=== PATIENT | female | born 1985 | race Caucasian/White ===

== ENCOUNTER → 2016-12-12 | Outpatient (CLI) | payer OTHER ==
[~2016-12-12] MED LIST: PANT40TA PO; PRENTAB26 PO
[2016-12-12 11:47] LABS: BASO % 0.4 %; BASO ABS # 0.02 K/uL (0-0.2); COMPLETE YES; EOS % 1.8 %; HEMATOCRIT 38.8 % (37-47); IG% 0.2 %; LYMPH % 45.5 %; LYMPH ABS # 2.55 K/uL (1.2-3.4); MEAN CORPUSCULAR HEMOGLOBIN 28.8 pg (25-34); MEAN CORPUSCULAR HGB CONC 33.5 g/dl (32-36); MEAN PLATELET VOLUME 9.2 fL (7.4-10.4); NEUT % 47.1 %; PLATELET COUNT 216 K/uL (130-400); RED BLOOD COUNT 4.51 M/uL (4.2-5.4); WHITE BLOOD COUNT 5.61 K/uL (4.8-10.8)
[2016-12-12 12:16] LABS: ALT/SGPT 24 U/L (12-78); AST/SGOT 13 U/L (15-37); BLOOD UREA NITROGEN 17 mg/dl (7-18); BUN/CREATININE RATIO 21.9 (10-20); CALCIUM 8.7 mg/dl (8.5-10.1); CARBON DIOXIDE 30 mmol/L (21-32); CHLORIDE 108 mmol/L (98-107); CREATININE 0.79 mg/dl (0.60-1.20); GLUCOSE 95 mg/dl (70-99); POTASSIUM 4.2 mmol/L (3.5-5.1); SODIUM 142 mmol/L (136-145)
[2016-12-12 12:19] LABS: ALKALINE PHOSPHATASE 99 U/L (45-117); C-REACTIVE PROTEIN 0.64 mg/dl (0-0.29)
== END | disposition home or self-care (01) ==
LOC: C.LAB 11:05
PROVIDERS: ATTEND Physician Assistant
DX: M05.89 Other rheumatoid arthritis with rheumatoid factor of multiple sites (principal); Z51.81 Encounter for therapeutic drug level monitoring

== ENCOUNTER → 2017-05-15 | Outpatient (CLI) | payer OTHER ==
--- NOTE | 2017-05-15 11:25 | DIAGNOSTIC IMAGING REPORT ---
C-SPINE ROUTINE W/FLEX EXT CLINICAL HISTORY: 32 years-old Female presenting with NECK PAIN. TECHNIQUE: Lateral view of the cervical spine in neutral, flexion, and extension positioning was obtained. In addition bilateral oblique, frontal, and open-mouth odontoid views were also obtained. COMPARISON: None. FINDINGS: Flexion and extension do not result in subluxation. Straightening of normal cervical lordosis likely positional. No radiographic evidence of fracture. Vertebral bodies maintain normal height and alignment. Intervertebral disc spaces preserved. Normal predental interval. No prevertebral soft tissue swelling. Bifid C5 spinous process noted. No neural foraminal narrowing. Lateral masses of C1 articulate normally with C2, although the open-mouth odontoid view is suboptimal. IMPRESSION: No acute osseous injury of the cervical spine. No subluxation on flexion and extension. Electronically signed by: Isiah Boogie M.D. 05/15/2017 11:24 AM Dictated Date/Time: 05/15/2017 11:21 AM
== END | disposition home or self-care (01) ==
LOC: C.RAD 10:31
PROVIDERS: ATTEND Internal Medicine Rheumatology
DX: Z51.81 Encounter for therapeutic drug level monitoring (principal); M06.9 Rheumatoid arthritis, unspecified; M54.2 Cervicalgia; Z79.899 Other long term (current) drug therapy

== ENCOUNTER → 2017-05-28 | Outpatient (CLI) | payer OTHER ==
[2017-05-28 14:39] LABS: BASO % 0.4 %; BASO ABS # 0.03 K/uL (0-0.2); COMPLETE YES; EOS % 1.5 %; HEMATOCRIT 36.7 % (37-47); IG% 0.1 %; LYMPH % 32.6 %; LYMPH ABS # 2.77 K/uL (1.2-3.4); MEAN CELL VOLUME 85.3 fL (80-100); MEAN CORPUSCULAR HEMOGLOBIN 28.1 pg (25-34); MEAN PLATELET VOLUME 9.2 fL (7.4-10.4); MONO % 5.5 %; NEUT % 59.9 %; PLATELET COUNT 275 K/uL (130-400)
[2017-05-28 15:10] LABS: ALT/SGPT 20 U/L (12-78); AST/SGOT 13 U/L (15-37); BLOOD UREA NITROGEN 14 mg/dl (7-18); BUN/CREATININE RATIO 18.3 (10-20); CALCIUM 8.6 mg/dl (8.5-10.1); CARBON DIOXIDE 27 mmol/L (21-32); CHLORIDE 107 mmol/L (98-107); CREATININE 0.78 mg/dl (0.60-1.20); GLUCOSE 87 mg/dl (70-99); POTASSIUM 4.1 mmol/L (3.5-5.1); SODIUM 140 mmol/L (136-145)
[2017-05-28 15:11] LABS: ALB/GLOB RATIO 0.9 (0.9-2); ALKALINE PHOSPHATASE 96 U/L (45-117); C-REACTIVE PROTEIN 1.14 mg/dl (0-0.29)
== END | disposition home or self-care (01) ==
LOC: C.LAB 13:52
PROVIDERS: ATTEND Physician Assistant
DX: M05.79 Rheumatoid arthritis with rheumatoid factor of multiple sites without organ or systems involvement (principal)

== ENCOUNTER → 2018-03-25 | Outpatient (CLI) | payer OTHER ==
[~2018-03-25] MED LIST changes: +AZIT500T26 PO; +BENZ100C84 PO; +CERT200K INJ; +MELO-83 PO; +MULT-506 PO; +PRED20TA2 PO; -PRENTAB26 PO; +SULF500T36 PO; +VNTHFA/IN INH
[2018-03-25 13:14] LABS: HEMOGLOBIN 11.9 g/dL (12.0-16.0); MEAN CELL VOLUME 84.1 fL (80-100); MEAN CORPUSCULAR HGB CONC 32.2 g/dl (32-36); MEAN PLATELET VOLUME 9.7 fL (7.4-10.4); PLATELET COUNT 190 K/uL (130-400); RED CELL DISTRIBUTION WIDTH CV 16.2 % (11.5-14.5); RED CELL DISTRIBUTION WIDTH SD 49.8 fL (36.4-46.3); WHITE BLOOD COUNT 4.99 K/uL (4.8-10.8)
[2018-03-25 13:49] LABS: BASO % 0.6 %; BASO ABS # 0.03 K/uL (0-0.2); EOS % 0.6 %; EOS ABS # 0.03 K/uL (0-0.5); IG# 0.01 K/uL (0.00-0.02); LYMPH % 54.3 %; LYMPH ABS # 2.71 K/uL (1.2-3.4); MONO ABS # 0.35 K/uL (0.11-0.59); NEUT % 37.3 %; NEUT ABS # 1.86 K/uL (1.4-6.5)
[2018-03-25 14:53] LABS: ALBUMIN 3.6 gm/dl (3.4-5.0); ALKALINE PHOSPHATASE 60 U/L (45-117); ALT/SGPT 25 U/L (12-78); AST/SGOT 21 U/L (15-37); CHOLESTEROL 118 mg/dl (0-200); CREATININE 0.88 mg/dl (0.60-1.20); GLUCOSE,FASTING 91 mg/dl (70-99); LDL CHOLESTEROL CALCULATED 63 mg/dl; TOTAL PROTEIN 7.2 gm/dl (6.4-8.2)
== END | disposition home or self-care (01) ==
LOC: C.LAB 12:12
PROVIDERS: ATTEND Family Medicine
DX: Z00.00 Encounter for general adult medical examination without abnormal findings (principal); M06.871 Other specified rheumatoid arthritis, right ankle and foot; Z79.899 Other long term (current) drug therapy

== ENCOUNTER 2019-07-15 04:31 | Inpatient (IN) ==
[2019-07-15] MEDS ORDERED: LACTATED RINGER'S 1,000 ML IV PRN (05:01)
[2019-07-15] MEDS ORDERED: OXYTOCIN 30 UNITS/500 ML BAG IV PRN ×2 (05:01→06:03)
[2019-07-15 05:57] LABS: Hematocrit (blood only) 33.7 % (37-47); Hemoglobin 10.4 g/dL (12.0-16.0); Mean Corpuscular Hemoglobin 27.8 pg (25-34); Mean Corpuscular Hgb Conc 30.9 g/dL (32-36); Mean Corpuscular Volume 90.1 fL (80-100); Mean Platelet Volume 9.8 fL (7.4-10.4); Nucleated RBC # (auto) 0.07 K/uL (0-0); Nucleated RBC % (auto) 0.5 %; Platelet Count 269 K/uL (130-400); RDW Coefficient of Variation 16.6 % (11.5-14.5); RDW Standard Deviation 54.1 fL (36.4-46.3); Red Blood Count 3.74 M/uL (4.2-5.4); White Blood Count 13.29 K/uL (4.8-10.8)
[2019-07-15] MEDS ORDERED: BISACODYL 10 MG SUPP PR PRN (06:03)
[2019-07-15] MEDS ORDERED: BENZOCAINE 20% AER SPR 82.5 GM CAN EXT PRN (06:03)
[2019-07-15] MEDS ORDERED: DIPHTHERIA/TETANUS/PERTUSSIS 0.5 ML SYR/VIAL IM ONE (06:03)
[2019-07-15] MEDS ORDERED: HYDROCORTISONE ACETATE 25 MG SUPP PR PRN (06:03)
[2019-07-15] MEDS ORDERED: SUPERCREAM 0.870% 15 GM JAR EXT PRN (06:03)
[2019-07-15] MEDS ORDERED: ACETAMINOPHEN 325 MG TAB PO PRN (06:03)
--- NOTE | 2019-07-15 06:13 | History & Physical Report ---
Date of Service July 15, 2019 Assessment & Plan (1) Supervision of normal intrauterine in multigravida: 34yo G [id number] at 40.1 weeks GA. SROM/ Labor 1. Fetus: Cat 1 2. Labor: SROM, q6min CTX 3. Vitals WNL 4. A1gDM: POC BG 5. GBS neg 6. RA - Home meds (2) Diet controlled gestational diabetes mellitus (GDM): (3) Obesity complicating peripregnancy, antepartum: History of Present Illness Primary Care Provider: NO PCP 34yo at 40.1 weeks GA. Present for LOF and contractions q6min. complicated by A1gDM, BMI>50, and rheumatoid arthritis. Allergies Allergy/AdvReac Type Severity Reaction Status Date / Time No Known Allergies Allergy Verified 07/12/19 13:41 Home Medications Home Medications Medication Instructions Recorded Confirmed Type prenat.vits,carlton,wol-sxry-cbhhy 1 tab PO DAILY 03/14/19 07/15/19 History pantoprazole 40 mg tablet,delayed 40 mg PO DAILY #30 tab 03/21/19 07/15/19 History release ondansetron HCl 4 mg tablet 8 mg PO BID PRN #30 tab 06/27/19 07/15/19 Rx certolizumab pegol [Cimzia] mg SUBCUT 2XWK 07/15/19 History Patient History Social History (Updated 03/21/19 @ 13:19 by Meri Soto) Preferred Language: Cook Islander Communication Ability: Effective Rn Burn Required: No Beliefs That Will Affect Care: None marital status: Current Living Situation: Spouse and Family Current Living Situation Comment: spouse and children current occupation: homemaker Feels Safe at Home: Yes Safety Concerns: Feels Safe At This Time Smoking Status: Never smoker Hx Alcohol Use: No Hx Substance Use: No Physical Exam Constitutional: WD/WN, vitals as above Psychiatric: A+Ox3, euthymic affect Genitourinary: no vaginal lesions, no adnexal mass OB Exam Abdomen: + vertex Manual OB Exam: + cervical dilation 2 cm, + cervical effacement 50%, + station -2 and + amniotic fluid meconium OB Exam Monitor Tracing: + external FHT monitor used, + external uterine monitor used, + category I and + normal FHT variability; no category III, no early decelerations present, no late decelerations present and no variable decelerations
[2019-07-15] MEDS: IBUPROFEN 600 MG TAB PO PRN ×4 (06:32→22:02)
--- NOTE | 2019-07-15 06:35 | Delivery Summary ---
DATE OF OPERATION: 07/15/2019 PROCEDURE: Normal spontaneous vaginal delivery with second-degree perineal laceration repair. SURGEON: Kamaljit Palomo MD PREOPERATIVE DIAGNOSES: 1. Single intrauterine at 40+ weeks' gestational age. 2. Diet-controlled gestational diabetes. 3. BMI greater than 54. 4. History of rheumatoid arthritis. POSTOPERATIVE DIAGNOSES: 1. Single intrauterine at 40+ weeks' gestational age. 2. Diet-controlled gestational diabetes. 3. BMI greater than 54. 4. History of rheumatoid arthritis. 5. Status post delivery. ESTIMATED BLOOD LOSS: 300 mL. DRAINS: None. FLUIDS: Continuous lactated ringer. URINE OUTPUT: Not measured. COMPLICATIONS: None. FINDINGS: Viable female infant with weight pending, Apgars of 7 and 9 at 1 and 5 minutes respectively. INDICATIONS: Ms. Leonard a 34-year-old G3, P2-0-0-2, admitted at 40 weeks 1 day gestational age with spontaneous rupture of membranes and regular painful contractions. At first evaluation, the patient was found to be 2 cm dilated, 50% effaced, -2 station. The patient progressed in labor over approximately 30-minute period to complete-complete +2 station, felt a strong urge to push and pushed for less than 1 contraction to achieve delivery. DESCRIPTION OF PROCEDURE: The patient progressed in labor to complete-complete +2. The patient delivered and transferred from recovery room to delivery room. Upon entering delivery room, the was then fully delivered and the cord was still attached to the umbilical cord. The cord was double clamped and cut and remained on maternal abdomen. Cord blood was then obtained. Attention was then turned to deliver the placenta. The cord was noted to be macerated and detached with minimal traction. Approximately 5-minute period was allowed for spontaneous delivery of placenta. The placenta was then able to be followed in the vagina and was grasped with a ring forceps and was able to be delivered. On inspection of the perineum, vagina, and cervix, there was noted to be a second degree perineal laceration which was repaired with 3-0 Vicryl and continuous running crown stitch. Needle, sponge and instrument counts were correct at the completion of the case entire and a total of 15 mL of 1% plain lidocaine was injected into the laceration. I attest to the content of the Intraoperative Record and any orders documented therein. Any exceptions are noted below. MTDD
[2019-07-15] MEDS: PRENATAL VITAMIN 1 TAB PO SCH (08:10)
[2019-07-15] MEDS: DOCUSATE SODIUM 100 MG CAP PO SCH ×2 (08:10→20:31)
[2019-07-15] MEDS: PANTOprazole 40 MG TAB PO SCH (08:11)
[2019-07-16 06:09] LABS: Hematocrit (blood only) 29.1 % (37-47)
[2019-07-16] MEDS: DOCUSATE SODIUM 100 MG CAP PO SCH (08:00)
[2019-07-16] MEDS: PRENATAL VITAMIN 1 TAB PO SCH (08:00)
[2019-07-16] MEDS: PANTOprazole 40 MG TAB PO SCH (08:00)
[2019-07-16] MEDS: IBUPROFEN 600 MG TAB PO PRN (08:00)
--- NOTE | 2019-07-16 09:58 | Obstetrical Progress Note ---
Date of Service July 16, 2019 Assessment & Plan (1) Normal delivery at term: plan d/c home, stable, routine pp care reviewed and instructions, plan 6wk pp check Day #:: 1 Subjective Ambulation: ambulating normally Voiding: no voiding problems Diet Tolerance:: regular diet Lochia:: Small Feeding Type:: breast feeding denies pain issues, desires d/c home Physical Exam Constitutional WD/WN, vitals as above Respiratory normal respiratory effort, lungs clear to auscultation Cardiovascular Rate/Rhythm: regular rate and regular rhythm Gastrointestinal (Abdomen) Percussion/Palpation: abdomen soft; abdomen nontender Musculoskeletal nt calves Neurologic grossly normal Psychiatric A+Ox3, euthymic affect Genitourinary FF at u, nt Results & Data Vital Signs (Past 12 Hours) Vital Signs Temp Pulse Resp BP Pulse Ox 07/16/19 07:52 97.7 F 86 16 113/76 94 07/16/19 03:19 98.1 F 78 20 121/80 07/16/19 00:00 97.9 F 96 H 20 121/78 96
[2019-07-16] MEDS ORDERED: BISACODYL 5 MG TABEC PO SCH (20:00)
== END 2019-07-16 12:06 | disposition home or self-care (01) | DRG 806 ==
LOC: OPB 04:31 → 4S1 04:33 → 4S2 09:01
DX: Z68.43 Body mass index [BMI] 50.0-59.9, adult; Z37.0 Single live birth; O24.420 Gestational diabetes mellitus in childbirth, diet controlled; Z3A.40 40 weeks gestation of pregnancy; O70.1 Second degree perineal laceration during delivery

== ENCOUNTER 2023-08-13 10:15 | Inpatient (IN) ==
[2023-08-13] MEDS ORDERED: LACTATED RINGER'S 1,000 ML IV PRN (11:20)
[2023-08-13 12:03] LABS: Hematocrit (blood only) 31.2 % (37.0-47.0); Hemoglobin 10.3 g/dl (12.0-16.0); Mean Corpuscular Hemoglobin 29.3 pg (25.0-34.0); Mean Corpuscular Volume 88.6 fL (80.0-100.0); Mean Platelet Volume 9.8 fL (9.4-12.4); Nucleated RBC # (auto) 0.02 K/uL (0.00-0.12); Nucleated RBC % (auto) 0.2 %; Platelet Count 279 K/uL (130-400); RDW Coefficient of Variation 14.6 % (11.5-14.5); RDW Standard Deviation 46.9 fL (36.4-46.3); Red Blood Count 3.52 M/uL (4.20-5.40)
--- NOTE | 2023-08-13 12:59 | History & Physical Report ---
Date of Service August 13, 2023 Assessment & Plan (1) Elderly multigravida, currently : (2) Diet controlled gestational diabetes mellitus (GDM): (3) Obesity complicating peripregnancy, antepartum: Plan 38 yo at 39 5/7 wga presents for IOL VSS Fetus cat 1 Labor - pt has hx rapid labors after srom/arom, would prefer to try this first before starting pit. Declines epidural at this point. AROM performed, pt tolerated well. Pit PRN GBS neg A1GDM - BG good on admit declines epidural Admission and Anticipated Discharge Date Admission Date: August 13, 2023 History of Present Illness Chief Complaint: IOL Primary Care Provider: Mireya Mann MD 38 yo at 39 5/7 wga presents for IOL per BMI protocol. +FM; denies ctx, LOF, VB PNI: A1GDM AMA BMI > 40 RA Past [employer] Hx: G1 2014 G2 2016 G3 2019SVD G4 2021 SAB G5 current Denies hx STIs Allergies Allergy/AdvReac Type Severity Reaction Status Date / Time adhesive Allergy Redness of Verified 08/13/23 11:35 Skin Home Medications Medication Instructions Recorded Confirmed Type pantoprazole 40 mg tablet,delayed 40 mg PO DAILY #30 tabs 03/21/19 08/13/23 History release prenat.vits,carlton,off-ihbp-hdqbu 1 tab PO DAILY 12/31/22 08/13/23 History acetone (urine) test (Ketone Urine #50 ea 04/06/23 08/12/23 Rx Test strips) blood sugar diagnostic (OneTouch #150 ea 04/06/23 08/12/23 Rx Verio test strips) blood-glucose meter (OneTouch #1 ea 04/06/23 08/12/23 Rx Verio Flex Meter) lancets 33 gauge #150 ea 04/06/23 08/12/23 Rx sertraline 50 mg tablet (Zoloft) 50 mg PO .COMPLEX #90 tabs 04/29/23 08/13/23 Rx promethazine 12.5 mg tablet 12.5 mg PO Q6H PRN nausea and 05/27/23 08/13/23 Rx vomiting #10 tabs pyridoxine (vitamin B6) 25 mg 25 mg PO TID PRN nausea and 06/11/23 08/13/23 Rx tablet vomiting #90 tabs ondansetron HCl 4 mg tablet 4 mg PO Q6H PRN nausea and 07/06/23 08/13/23 Rx vomiting #20 tabs Patient History Medical History Post depression History of rheumatoid arthritis Enlarged thyroid Depression Anxiety History of anemia Procreative management counseling History of urinary tract infection History of acute bronchitis Supervision of normal intrauterine in multigravida Screening, , for anatomic survey Surgical History S/P wisdom tooth extraction Family History Mother Otoniel's thyroiditis Breast cancer, Onset Age: 35 Father Depression Anxiety Uncle Alcohol abuse Denies family history of Ovarian cancer Colorectal cancer Social History Smoking Status: Never smoker Do You Dip or Chew Tobacco: No; Hx Alcohol Use: No Hx Substance Use: No Preferred Language: [place] African Communication Ability: Effective Car Dispatcher Required: No Beliefs That Will Affect Care: None marital status: marital status details: maureen almeida (38) [phone] Current Living Situation: Spouse Current Living Situation Comment: spouse and children, 2 dogs current occupational status: employed current occupation: [employer] artist, at home Other Information That Helps Us Care for You: No Feels Safe at Home: Yes Safety Concerns: Feels Safe At This Time Assistive Devices: None Physical Exam Genitourinary: Manual OB Exam: + cervical dilation (3.5), + cervical effacement 50%, + station -2 and + amniotic fluid (arom light mec) OB Exam Monitor Tracing: + external FHT monitor used, + external uterine monitor used (irritability) and + category I (140/mod/+accel/-decel) Results & Data Vital Signs (Past 12 Hours) Vital Signs Temp Pulse Resp BP 08/13/23 11:04 98.1 F 20 08/13/23 11:03 111 H 129/68 Laboratory Results OB Labs: Blood Type AB Positive 03/13/23 Antibody Screen NEGATIVE 03/13/23 Hemoglobin 12.5 g/dl (12.0-16.0) 01/16/23 Hematocrit 36.8 % (37.0-47.0) L 01/16/23 Mean Corpuscular Volume 89.5 fL (80.0-100.0) 01/16/23 Platelet Count 205 K/uL (130-400) 01/16/23 Rubella IgG Antibody Immune (Immune) 03/13/23 Rapid Plasma Reagin Nonreactive (Nonreactive) 03/13/23 Hepatitis B Surface Antigen Neg (Neg) 12/02/18 Hepatitis B Surface Antigen. NON-REACTIVE (NON-REACTIVE) 01/16/23 Hepatitis C Antibody (EIA) NON-REACTIVE (NON-REACTIVE) 01/16/23 HIV (1&2) Ab and P24 Ag, 4th Gener Neg (Neg) 12/02/18 HIV (1&2) Ag and Ab Confirmation NON-REACTIVE (NON-REACTIVE) 03/13/23 Maternal Serum Alpha Fetoprotein 25.3 ng/mL 03/13/23 OB Optional Labs: Chlamydia trachomatis RNA Not Detected (NotDetected) 01/08/23 Neisseria gonorrhoeae RNA Not Detected (NotDetected) 01/08/23 Thyroid Stimulating Hormone (TSH) 2.380 uIu/ml (0.300-4.500) 04/11/21 Alpha Fetoprotein Triple Screen SEE NOTE 03/13/23 Labs Reviewed: low risk panorama--[facility] afp neg--[facility] GBS neg Diagnostic Findings 07/19 EFW 60% Coding Level of Care Code None Diagnoses Elderly multigravida, currently O09.529 Diet controlled gestational diabetes mellitus (GDM) O24.410 Obesity complicating peripregnancy, antepartum O99.210
[2023-08-13] MEDS ORDERED: LIDOCAINE 2%/EPINEPHRINE 1:200,000 20 ML PF ONE (15:34)
[2023-08-13] MEDS ORDERED: fentANYL 2 MCG/ML BUPIVacaine 0.125%-NSS 100ML BAG ONE (15:34)
[2023-08-13] MEDS ORDERED: ePHEDrine sulfate 50 MG/ML AMP ONE (15:34)
[2023-08-13] MEDS ORDERED: fentaNYL citrate PF 100 MCG/2 ML VIAL ONE (15:34)
[2023-08-13] MEDS ORDERED: SODIUM CHLORIDE 0.9% PF INJ 10 ML VIAL ONE (15:34)
[2023-08-13] MEDS ORDERED: BUPIVACAINE 0.25% PF 30 ML VIAL ONE (15:34)
[2023-08-13] MEDS ORDERED: BUPIVACAINE 0.25% PF 30 ML VIAL EPI PRN (15:40)
[2023-08-13] MEDS ORDERED: ONDANSETRON INJ 2 MG/ML 2 ML VIAL IV PRN (15:40)
[2023-08-13] MEDS ORDERED: fentaNYL citrate PF 100 MCG/2 ML VIAL EPI STA (15:40)
[2023-08-13] MEDS ORDERED: SODIUM CHLORIDE 0.9% PF INJ 10 ML VIAL EPI PRN (15:40)
[2023-08-13] MEDS ORDERED: LIDOCAINE 2% MPF LOCAL 5 ML VIAL EPI PRN (15:40)
[2023-08-13] MEDS ORDERED: NALBUPHINE HCL 5 MG in SYRINGE 0 ML IV PRN (15:40)
[2023-08-13] MEDS ORDERED: SODIUM CHLORIDE 0.9% PF INJ 10 ML VIAL EPI STA (15:40)
[2023-08-13] MEDS ORDERED: diphenhydrAMINE 50 MG/ML VIAL IV PRN (15:40)
[2023-08-13] MEDS ORDERED: ePHEDrine sulfate 50 MG/ML AMP IV PRN (15:40)
[2023-08-13] MEDS ORDERED: NALOXONE HCL 0.4 MG/1 ML VIAL/CARP IV PRN (15:40)
[2023-08-13] MEDS ORDERED: BUPIVACAINE 0.25% PF 30 ML VIAL EPI STA (15:40)
[2023-08-13] MEDS ORDERED: ROPIVACAINE 0.5% PF 5 MG/ML 20 ML VIAL EPI PRN (15:40)
[2023-08-13] MEDS ORDERED: LIDOCAINE 2%/EPINEPHRINE 1:200,000 20 ML PF EPI STA (15:40)
[2023-08-13] MEDS ORDERED: fentaNYL citrate PF 100 MCG/2 ML VIAL EPI PRN (15:40)
[2023-08-13] MEDS ORDERED: NALOXONE HCL 1 MG in SODIUM CHLORIDE 0.9% 1,000 ML IV PRN (15:40)
[2023-08-13] MEDS ORDERED: fentANYL 2 MCG/ML BUPIVacaine 0.125%-NSS 100ML BAG EPI PRN (15:40)
--- NOTE | 2023-08-13 15:40 | Anesthesiology Consultation ---
Date of Service August 13, 2023 Assessment & Plan ASA ASA3 Proposed Anesthesia Anesthesia Type: Labor Epidural Risk / Benefits Reviewed With: PT / POA / Parent / Guardian, Accepts Plan and Informed Consent Obtained History Height/Weight Height: 5 ft 6 in Weight: 121.109 kg Allergies Allergy/AdvReac Type Severity Reaction Status Date / Time adhesive Allergy Redness of Verified 08/13/23 11:35 Skin Medications Home Medications Medication Instructions Recorded Confirmed Last Taken pantoprazole 40 mg tablet,delayed 40 mg PO DAILY #30 tabs 03/21/19 08/13/23 07/14/19 08:00 release prenat.vits,carlton,nnp-rako-msbbu 1 tab PO DAILY 12/31/22 08/13/23 Unknown acetone (urine) test (Ketone Urine #50 ea 04/06/23 08/12/23 Unknown Test strips) blood sugar diagnostic (OneTouch #150 ea 04/06/23 08/12/23 Unknown Verio test strips) blood-glucose meter (OneTouch #1 ea 04/06/23 08/12/23 Unknown Verio Flex Meter) lancets 33 gauge #150 ea 04/06/23 08/12/23 Unknown sertraline 50 mg tablet (Zoloft) 50 mg PO .COMPLEX #90 tabs 04/29/23 08/13/23 Unknown promethazine 12.5 mg tablet 12.5 mg PO Q6H PRN nausea and 05/27/23 08/13/23 Unknown vomiting #10 tabs pyridoxine (vitamin B6) 25 mg 25 mg PO TID PRN nausea and 06/11/23 08/13/23 Unknown tablet vomiting #90 tabs ondansetron HCl 4 mg tablet 4 mg PO Q6H PRN nausea and 07/06/23 08/13/23 Unknown vomiting #20 tabs Active Medications Generic Name Dose Route Start Last Admin Trade Name Freq PRN Reason Stop Dose Admin Lactated Ringer's 1,000 mls @ 125 mls/hr 08/13/23 11:20 08/13/23 15:27 Lr IV 08/15/23 11:19 999 mls/hr .Q8H PRN Administration L&D Protocol Protocol Past Medical History Medical History Post depression History of rheumatoid arthritis Enlarged thyroid Depression Anxiety History of anemia Procreative management counseling History of urinary tract infection History of acute bronchitis Supervision of normal intrauterine in multigravida Screening, , for anatomic survey Exercise / Class Metabolic Activity II 4-5 Yardwork/Stairs/Walk up hill Past Family History Family History Mother Otoniel's thyroiditis Breast cancer, Onset Age: 35 x2, +BRCA gene. had chemo,radiation,lumpectomy- surviving today Father Depression Anxiety Uncle Alcohol abuse paternal Denies family history of Ovarian cancer Colorectal cancer Past Surgical History Surgical History S/P wisdom tooth extraction Past Anesthesia History No Hx of Anesthesia Complications and No Family Hx of Anesthesia Complications History of PONV No Hx of PONV and No Hx of Motion Sickness Social History Smoking Status: Never smoker Do You Dip or Chew Tobacco: No Hx Alcohol Use: No Hx Substance Use: No substance use type: does not use Review of Systems denies fever/cough/ colds/ chest pain/ SOB/ ERICK denies ERICK Physical Exam Vital Signs Last Vital Signs Temp 36.4 C L 08/13/23 13:57 Pulse 82 08/13/23 15:35 Resp 20 08/13/23 13:57 BP 121/70 08/13/23 13:57 Pulse Ox 94 08/13/23 15:35 ENMT Mouth: no TMJ abnormality and no dentition abnormality Thyromental Distance: > or= 3.5 Finger Breadths Mallampati Class: II Neck neck extension not limited Respiratory normal respiratory effort; no respiratory distress Auscultation: lungs clear to auscultation bilaterally Cardiovascular Rate/Rhythm: regular rate and regular rhythm Neurologic moves all extremities Psychiatric Orientation: alert and oriented x 3 Testing Laboratory Results 08/13/23 11:32 Blood Type AB Positive 08/13/23 11:32 Antibody Screen NEGATIVE 08/13/23 11:32 08/13/23 11:57 POC Glucose 96
[2023-08-13] MEDS: OXYTOCIN 30 UNITS/NSS 30 UNITS/500 ML BAG IV PRN ×2 (16:27→17:25)
[2023-08-13] MEDS: LIDOCAINE 1% LOCAL 20 ML VIAL INFIL PRN ×2 (16:33→16:34)
[2023-08-13] MEDS ORDERED: BENZOCAINE 20% SPRY 85 APPLN/85 GM CAN EXT PRN (16:50)
[2023-08-13] MEDS ORDERED: HYDROCORTISONE ACETATE 25 MG SUPP PR PRN (16:50)
[2023-08-13] MEDS ORDERED: OXYTOCIN 30 UNITS/NSS 30 UNITS/500 ML BAG IV PRN (16:50)
[2023-08-13] MEDS ORDERED: ACETAMINOPHEN 325 MG TAB PO PRN (16:50)
[2023-08-13] MEDS ORDERED: bisacodyL 10 MG SUPP PR PRN (16:50)
[2023-08-13] MEDS ORDERED: DIPHTHERIA/TETANUS/PERTUSSIS Vaccine (Tdap, Age 7+yrs) 0.5mL SYR/VL IM ONE (16:50)
--- NOTE | 2023-08-13 17:15 | Delivery Summary ---
Vaginal Delivery Summary Date of Service August 13, 2023 Vaginal Delivery Summary and 2nd Degree LAC Patient progressed to 10 cm dilated 100% effaced +2 station pushed over 1-2 contractions with epidural anesthesia and delivered a viable female with weight and Apgars pending. Had the delivered in GRACIELA position repositioned to right transverse. No nuchal cord was noted. Body and shoulders quickly followed. was noted to be vigorous soon after delivery and a 1 minute delayed cord clamping was initiated. Cord was then double clamped and cut. remained on maternal abdomen. Cord blood was obtained and attention was turned to delivery of the placenta which delivered intact with three-vessel cord with gentle cord traction. On inspection of the perineum vagina and cervix there is noted to be a second-degree perineal laceration which was repaired with 3-0 Vicryl in traditional crown stitch. Needle sponge and instrument counts are correct at the completion of the case both mother and stable in the immediate postdelivery period. Estimated blood loss approximately 100 mL. No complications noted during delivery [facility] Vaginal Delivery Charge Delivery Type Details: and 2nd Degree LAC
--- NOTE | 2023-08-13 17:29 | Anesthesia Procedure Note ---
Date of Service August 13, 2023 Anesthesia Post Epidural Note Vital Signs Vital Signs: Temp Pulse Resp BP Pulse Ox 36.4 C L 63 24 129/57 L 100 08/13/23 16:05 08/13/23 17:26 08/13/23 16:05 08/13/23 17:26 08/13/23 16:39 Pain Intensity Abdomen: Pain Intensity: 0 Notes Mental Status: alert / awake / arousable and participated in evaluation Nausea / Vomiting: adequately controlled Pain: adequately controlled Airway Patency, RR, SpO2: stable & adequate BP & HR: stable & adequate Hydration State: stable & adequate Neuraxial Anesthesia: was administered and sensory block resolved Anesthetic Complications: no major complications apparent and Pt Satisfied with anesthetic care Epidural: Removed without complications and With tip intact
[2023-08-13] MEDS: IBUPROFEN 600 MG TAB PO PRN (18:31)
[2023-08-13] MEDS: DOCUSATE SODIUM 100 MG CAP PO SCH (20:22)
[2023-08-13] MEDS: SERTRALINE HCL 50 MG TABLET PO SCH (20:22)
[2023-08-14] MEDS: IBUPROFEN 600 MG TAB PO PRN ×2 (03:24→08:02)
[2023-08-14] MEDS ORDERED: PRENATAL VITAMIN 1 TAB PO SCH (08:00)
[2023-08-14] MEDS ORDERED: FERROUS SULFATE 325 MG TAB PO SCH (08:00)
[2023-08-14] MEDS: DOCUSATE SODIUM 100 MG CAP PO SCH (08:02)
[2023-08-14] MEDS: SERTRALINE HCL 50 MG TABLET PO SCH (08:03)
--- NOTE | 2023-08-14 09:05 | Obstetrical Progress Note ---
Date of Service August 14, 2023 Assessment & Plan (1) Encounter for care and examination after delivery: Day 1 status post vaginal delivery. Patient doing well and desires discharge. Stable for discharge Subjective Ambulation: ambulating normally Voiding: no voiding problems Passing Gas:: Yes Diet Tolerance:: regular diet Lochia:: Moderate Feeding Type:: breast feeding Physical Exam Constitutional WD/WN, vitals as above Respiratory normal respiratory effort; no respiratory distress and no labored breathing Gastrointestinal (Abdomen) Inspection/Auscultation: abdomen normal to inspection; abdomen not distended Percussion/Palpation: abdomen soft; abdomen nontender, no guarding and abdomen not rigid Genitourinary OB Exam Abdomen: + fundal height Fundus: + firm and + relation to umbilicus (Below); not tender or not boggy Results & Data Vital Signs (Past 12 Hours) Vital Signs Temp Pulse Pulse Resp BP BP Pulse Ox 08/14/23 07:40 36.5 C 70 18 104/63 97 08/14/23 03:15 36.8 C 62 18 109/72 97 08/13/23 22:54 36.4 C L 64 18 99/64 L 98 O2 Del Method 08/14/23 07:40 Room Air 08/14/23 03:15 Room Air 08/13/23 22:54 Room Air
[2023-08-14] MEDS ORDERED: bisacodyL 5 MG TABEC PO SCH (20:00)
== END 2023-08-14 18:35 | disposition home or self-care (01) | DRG 807 ==
LOC: 4S1 10:57 → 4E2 19:52
DX: O24.420 Gestational diabetes mellitus in childbirth, diet controlled; O70.1 Second degree perineal laceration during delivery; Z91.048 Other nonmedicinal substance allergy status; O99.344 Other mental disorders complicating childbirth; O99.214 Obesity complicating childbirth; F32.A Depression, unspecified; Z37.0 Single live birth; Z79.899 Other long term (current) drug therapy; Z3A.39 39 weeks gestation of pregnancy